=== PATIENT | male | born 1955 | race Caucasian/White ===

== ENCOUNTER 2017-05-23 16:37 | Emergency (ER) | payer BC, OTHER ==
[2017-05-23] MEDS ORDERED: TETANUS/DIPHTHERIA/PERTUSSIS 0.5 ML SYRINGE IM ONE (17:54)
[2017-05-23] MEDS ORDERED: AMOX/CLAV 875 MG/125 MG TABLET PO STA (17:54)
--- NOTE | 2017-05-23 17:57 | ED Physician Documentation ---
History of Present Illness - Stated complaint Stated Complaint: DOG BITE LT HAND - Chief complaint Chief Complaint: Laceration - Additonal information Additional information: hx from pt his dog bit him on the left hand today immunized dog pt need tdap provoked bite (dog didnt like feet being wiped) Review of Systems Skin: reports: Bite / sting PD PAST MEDICAL HISTORY - Past Medical History Past Medical History: Yes Derm: Psoriasis Other Past Medical History: Colon Cancer - Past Surgical History Past Surgical History: Yes - Present Medications Home Medications: Ambulatory Orders Medication Instructions Recorded Confirmed Ondansetron Odt [Zofran] 4 mg TL Q6H PRN #10 tablet 12/23/12 12/26/12 Amox/Clav 875/125 [Augmentin] 1 each PO Q12H #10 tablet 05/23/17 - Allergies Allergies/Adverse Reactions: Allergies Allergy/AdvReac Type Severity Reaction Status Date / Time No Known Drug Allergies Allergy Verified 12/23/12 17:26 - Social History Does the pt smoke?: Yes Smoking Status: Current every day smoker Does the pt drink ETOH?: Yes Does the pt have substance abuse?: No - Immunizations Immunizations are current?: No Immunizations: TDAP >10years/unknown PD ED PE NORMAL - Vitals Vital signs reviewed: Yes - Extremities Extremities: Other (L hand approx 1.5 cm U shaped lac over 3rd MCP jt, not too deep, examined to base through ROM and saw no FB or tendon, full flexion extion MCP PIP DIP, sensation intact) Results - Vitals Vitals: Vital Signs - 24 hr 05/23/17 16:43 Temperature 36.8 C Heart Rate 75 Respiratory 18 Rate Blood Pressure 158/98 H O2 Saturation 100 Oxygen O2 Source Room air PD MEDICAL DECISION MAKING - ED course ED course: explained why cannot suture will irrigate dress rx augmentin and give tdap Departure - Departure Disposition: 01 Home, Self Care Clinical Impression: Dog bite Qualifiers: Encounter type: initial encounter Qualified Code(s): W54.0XXA - Bitten by dog, initial encounter Condition: Good Instructions: ED Bite Animal General Prescriptions: Amox/Clav 875/125 [Augmentin] 1 each PO Q12H #10 tablet Comments: Keep the wound clean. Apply antibiotic ointment twice a day. Take the augmentin to prevent infection Even with good wound care and prophylactic antibiotics, some wound get infected - please watch the wound carefully and if it becomes red or swollen or painful or is draining pus, come back right away
[2017-05-23 18:47] VITALS: BP 158/85
== END 2017-05-23 18:45 | disposition home or self-care (01) ==
LOC: ED 16:37
DX: S61.412A Laceration without foreign body of left hand, initial encounter (principal); W54.0XXA Bitten by dog, initial encounter; Z23 Encounter for immunization; F17.200 Nicotine dependence, unspecified, uncomplicated
CPT/HCPCS: 90471; 90715; 99283; A9270

== ENCOUNTER 2022-02-24 12:40 | Outpatient (CLI) | payer OTHER ==
--- NOTE | 2022-02-24 17:24 | CT Report ---
PROCEDURE: Low Dose Lung Cancer Screen INDICATIONS: CIGARETTE SMOKER TECHNIQUE: Noncontrast low-dose axial images were acquired from the pulmonary apices to the posterior costophren ic angles. Multiplanar MIP reformats were then reconstructed. For radiation dose reduction, the follo wing was used: automated exposure control, adjustment of mA and/or kV according to patient size. COMPARISON: None. FINDINGS: Image quality: Excellent. Lungs and pleura: There is a small 3 mm pulmonary nodular density involving the patient's right midl winifred. No other significant pulmonary lesions are identified. No focal lung infiltrate is seen. Mild emphysematous changes noted throughout both lungs. No pleural effusion is seen. Mediastinum: Heart size is normal. No pericardial effusion. No mediastinal adenopathy by size crit eria. Thoracic aorta and central pulmonary arteries are normal in size. Esophagus is normal in maite piedad. No hiatal hernia. There are some coronary artery and atherosclerotic calcifications present. Bones and chest wall: No suspicious bony lesions. No vertebral body compression fractures. No axil katelyn or supraclavicular adenopathy by size criteria. The thyroid is normal in size and there are no incidental findings. Abdomen: Visualized upper abdomen solid organs and bowel loops appear normal in the absence of contr ast. IMPRESSION: 1. Single small 3 mm pulmonary nodular density right midlung. 2. Mild emphysematous changes are noted throughout both lungs. 3. Coronary artery and atherosclerotic calcifications. 4. Lung rads Category 2. Benign findings. Recommend low-dose CT of the chest in 12 months. Reviewed by: Jose Banda MD on 02/24/2022 5:23 PM PST Approved by: Jose Banda MD on 02/24/2022 5:23 PM PST Station ID: [id number]
== END 2022-02-24 12:41 | disposition home or self-care (01) ==
LOC: DI 12:40
PROVIDERS: ATTEND Nurse Practitioner
DX: Z12.2 Encounter for screening for malignant neoplasm of respiratory organs (principal); F17.210 Nicotine dependence, cigarettes, uncomplicated; R91.1 Solitary pulmonary nodule; J43.9 Emphysema, unspecified; I25.10 Atherosclerotic heart disease of native coronary artery without angina pectoris

== ENCOUNTER 2023-05-02 07:45 | Outpatient (CLI) | payer MEDICARE, OTHER ==
--- NOTE | 2023-05-02 11:22 | XRAY Report ---
PROCEDURE: Humerus RT INDICATIONS: PAIN IN RIGHT UPPER ARM TECHNIQUE: 2 views of the humerus were acquired. COMPARISON: None. FINDINGS: Bones: No fractures or dislocations. No suspicious bony lesions. Soft tissues: No suspicious soft tissue calcifications or masses. IMPRESSION: No visualized acute fracture or dislocation. However, occult injury cannot be excluded. Recommend chilo rt interval imaging follow-up in 7-10 days as clinically indicated for additional evaluation. Reviewed by: Amanda Mckee MD on 05/02/2023 11:21 AM [facility] Approved by: Amanda Mckee MD on 05/02/2023 11:21 AM PST Station ID: [id number]
== END 2023-05-02 08:00 | disposition home or self-care (01) ==
LOC: DI.N 07:45
PROVIDERS: ATTEND Nurse Practitioner
DX: M79.621 Pain in right upper arm (principal)

== ENCOUNTER 2023-06-12 12:00 | Outpatient (CLI) | payer OTHER | END 2023-06-12 12:15 | disposition home or self-care (01) | LOC: LAB.N 12:00 | PROVIDERS: ATTEND Physician Assistant Medical | DX: J02.9 Acute pharyngitis, unspecified (principal) | CPT/HCPCS: 87070 ==

== ENCOUNTER 2023-07-15 07:30 | Outpatient (CLI) | payer OTHER ==
[2023-07-15 07:46] LABS: BASOPHILS % (AUTO) 0.6 %; EOSINOPHILS # (AUTO) 0.2 10^3/uL (0.0-0.7); EOSINOPHILS % (AUTO) 3.7 %; HCT - HEMATOCRIT 40.4 % (42.0-52.0); HGB - HEMOGLOBIN 12.9 g/dL (14.0-18.0); LYMPHOCYTES # (AUTO) 1.7 10^3/uL (1.5-3.5); LYMPHOCYTES % (AUTO) 33.6 %; MEAN CORPUSCULAR HEMOGLOBIN 32.3 pg (27.0-31.0); MEAN CORPUSCULAR HGB CONC 31.9 g/dL (32.0-36.0); MEAN CORPUSCULAR VOLUME 101.3 fL (80.0-94.0); MEAN PLATELET VOLUME 8.2 fL (7.4-11.4); MONOCYTES # (AUTO) 0.6 10^3/uL (0.0-1.0); MONOCYTES % (AUTO) 11.4 %; NEUTROPHILS # (AUTO) 2.6 10^3/uL (1.5-6.6); NEUTROPHILS % (AUTO) 50.5 %; PLT - PLATELET COUNT 261 10^3/uL (130-450); RED BLOOD COUNT 3.99 10^6/uL (4.70-6.10); WHITE BLOOD COUNT 5.2 x10^3/uL (4.8-10.8)
[2023-07-15 08:00] LABS: ALBUMIN 4.1 g/dL (3.2-5.5); ALBUMIN/GLOBULIN RATIO 1.5 (1.0-2.2); ALKALINE PHOSPHATASE 59 IU/L (42-121); ALT ALANINE AMINOTRANSFERASE 14 IU/L (10-60); AST ASPARTATE AMINOTRANSFERASE 13 IU/L (10-42); BILIRUBIN,TOTAL 0.2 mg/dL (0.2-1.0); BUN - BLOOD UREA NITROGEN 12 mg/dL (6-20); CALCIUM 9.4 mg/dL (8.5-10.3); CARBON DIOXIDE - CO2 28 mmol/L (21-32); CHLORIDE 107 mmol/L (101-111); CHOL/HDL RATIO 4.1 (<5.0); CHOLESTEROL 223 mg/dL; CREATININE 0.7 mg/dL (0.6-1.3); GFR - MDRD 112 (>89); GLUCOSE 109 mg/dL (74-104); HDL CHOLESTEROL 54 mg/dL; LDL CHOLESTEROL,CALCULATED 155 mg/dL; LDL/HDL RATIO 2.9 (<3.6); POTASSIUM 4.4 mmol/L (3.5-4.5); SODIUM 141 mmol/L (135-145); TOTAL PROTEIN 6.8 g/dL (6.4-8.9); TRIGLYCERIDES 72 mg/dL (48-352); VLDL CHOLESTEROL 14 mg/dL
[2023-07-15 08:14] LABS: THYROID STIMULATING HORMONE 2.42 uIU/mL (0.34-5.60)
== END 2023-07-15 07:31 | disposition home or self-care (01) ==
LOC: LAB 07:30
PROVIDERS: ATTEND Nurse Practitioner Family
DX: R03.0 Elevated blood-pressure reading, without diagnosis of hypertension (principal); Z12.5 Encounter for screening for malignant neoplasm of prostate
CPT/HCPCS: 36415; 80053; 80061; 83721; 84153; 84443; 85025

== ENCOUNTER 2023-07-17 16:48 | Outpatient (CLI) | payer OTHER ==
--- NOTE | 2023-07-18 09:29 | Ultrasound Report ---
PROCEDURE: Soft Tissue Head or Neck INDICATIONS: THYROID MASS TECHNIQUE: Real-time scanning was performed of the thyroid gland, with image documentation. COMPARISON: None FINDINGS: Right: Thyroid lobe measures 4.4 x 1.6 x 1.9 cm, and is heterogeneous in echotexture. Left: Thyroid lobe measures 4 x 1.3 x 1.3 cm, and is heterogeneous in echotexture. Isthmus: 0.3 cm thick. No thyroid nodules. A few nonenlarged benign lymph nodes with normal morphology. IMPRESSION: Thyroid gland is heterogeneous in echotexture with no nodules. Reviewed by: Ruth Clinton MD on 07/18/2023 9:27 AM PDT Approved by: Ruth Clinton MD on 07/18/2023 9:27 AM PDT Station ID: [id number]
== END 2023-07-17 16:49 | disposition home or self-care (01) ==
LOC: DI 16:48
PROVIDERS: ATTEND Nurse Practitioner Family
DX: E07.9 Disorder of thyroid, unspecified (principal)

== ENCOUNTER 2023-07-31 15:40 | Outpatient (CLI) | payer OTHER ==
[2023-07-31 16:04] LABS: BASOPHILS % (AUTO) 0.7 %; EOSINOPHILS # (AUTO) 0.1 10^3/uL (0.0-0.7); EOSINOPHILS % (AUTO) 1.4 %; HCT - HEMATOCRIT 37.4 % (42.0-52.0); HGB - HEMOGLOBIN 12.2 g/dL (14.0-18.0); LYMPHOCYTES # (AUTO) 2.6 10^3/uL (1.5-3.5); LYMPHOCYTES % (AUTO) 46.8 %; MEAN CORPUSCULAR HEMOGLOBIN 32.4 pg (27.0-31.0); MEAN CORPUSCULAR HGB CONC 32.6 g/dL (32.0-36.0); MEAN CORPUSCULAR VOLUME 99.2 fL (80.0-94.0); MEAN PLATELET VOLUME 8.1 fL (7.4-11.4); MONOCYTES # (AUTO) 0.6 10^3/uL (0.0-1.0); MONOCYTES % (AUTO) 10.8 %; NEUTROPHILS # (AUTO) 2.2 10^3/uL (1.5-6.6); NEUTROPHILS % (AUTO) 40.3 %; PLT - PLATELET COUNT 213 10^3/uL (130-450); RED BLOOD COUNT 3.77 10^6/uL (4.70-6.10); RED CELL DISTRIBUTION WIDTH 12.8 % (12.0-15.0); WHITE BLOOD COUNT 5.5 x10^3/uL (4.8-10.8)
[2023-07-31 16:36] LABS: FERRITIN 41.4 ng/mL (23.9-336.2)
== END 2023-07-31 15:41 | disposition home or self-care (01) ==
LOC: LAB 15:40
PROVIDERS: ATTEND Nurse Practitioner Family
DX: D64.9 Anemia, unspecified (principal)
CPT/HCPCS: 36415; 82607; 82728; 82746; 83540; 84466; 85025

== ENCOUNTER 2023-11-03 09:27 | Outpatient (CLI) | payer OTHER ==
--- NOTE | 2023-11-03 11:57 | CT Report ---
PROCEDURE: Head WO INDICATIONS: SHORT TERM MEMORY LOSS TECHNIQUE: Noncontrast 4.5 mm thick angled axial sections acquired from the foramen magnum to the vertex. For r adiation dose reduction, the following was used: automated exposure control, adjustment of mA and/or kV according to patient size. COMPARISON: None. FINDINGS: Image quality: Excellent. CSF spaces: Basal cisterns are patent. No extra-axial fluid collections. Ventricles are normal in size and shape. Brain: No midline shift. No intracranial masses or hemorrhage. Carmichael-white matter interface is norm al. Age-appropriate brain parenchymal volume loss and chronic small vessel ischemic change can be se en. Skull and face: Calvarium and visualized facial bones are intact, without suspicious lesions. Sinuses: Visualized sinuses and mastoids are clear. IMPRESSION: Noncontrast head CT within normal limits for age. Reviewed by: Casey Saucedo MD on 11/03/2023 10:56 AM [facility] Approved by: Casey Saucedo MD on 11/03/2023 10:56 AM [facility] Station ID: [id number]
== END 2023-11-03 09:28 | disposition home or self-care (01) ==
LOC: DI 09:27
PROVIDERS: ATTEND Nurse Practitioner Family
DX: R41.3 Other amnesia (principal)

== ENCOUNTER 2023-11-13 15:58 | Emergency (ER) | payer OTHER ==
[2023-11-13 16:28] VITALS: O2SAT 99
[2023-11-13 16:49] LABS: BASOPHILS % (AUTO) 0.3 %; EOSINOPHILS # (AUTO) 0.1 10^3/uL (0.0-0.7); EOSINOPHILS % (AUTO) 1.3 %; HCT - HEMATOCRIT 38.8 % (42.0-52.0); LYMPHOCYTES % (AUTO) 23.2 %; MEAN CORPUSCULAR HEMOGLOBIN 32.6 pg (27.0-31.0); MEAN CORPUSCULAR HGB CONC 33.5 g/dL (32.0-36.0); MEAN CORPUSCULAR VOLUME 97.2 fL (80.0-94.0); MEAN PLATELET VOLUME 8.4 fL (7.4-11.4); MONOCYTES # (AUTO) 1.2 10^3/uL (0.0-1.0); MONOCYTES % (AUTO) 13.9 %; NEUTROPHILS # (AUTO) 5.2 10^3/uL (1.5-6.6); NEUTROPHILS % (AUTO) 61.1 %; PLT - PLATELET COUNT 204 10^3/uL (130-450); RED BLOOD COUNT 3.99 10^6/uL (4.70-6.10); RED CELL DISTRIBUTION WIDTH 12.2 % (12.0-15.0); WHITE BLOOD COUNT 8.6 x10^3/uL (4.8-10.8)
[2023-11-13 16:56] LABS: RAPID STREP SCREEN Negative (Negative)
[2023-11-13 17:19] LABS: ALBUMIN 4.4 g/dL (3.2-5.5); ALBUMIN/GLOBULIN RATIO 1.6 (1.0-2.2); BILIRUBIN,TOTAL 0.5 mg/dL (0.2-1.0); CALCIUM 9.6 mg/dL (8.5-10.3); CREATININE 0.7 mg/dL (0.6-1.3); POTASSIUM 4.1 mmol/L (3.5-4.5); TOTAL PROTEIN 7.2 g/dL (6.4-8.9)
--- NOTE | 2023-11-13 17:20 | ED Physician Documentation ---
History of Present Illness - Stated complaint Stated Complaint: SORE THROAT - Chief complaint Chief Complaint: Heent - History obtained from History obtained from: Patient - Additonal information Additional information: This is a very nice 68-year-old gentleman who Presents with a sore throat which started Last night. He notes more swelling on the left side and it is quite painful to swallow though he is able to tolerate oral fluids. He has not had any difficulty managing secretions, and denies any difficulty breathing. He has not had a fever to his knowledge, no difficulty opening the mouth or moving the neck. He has not attempted any medication for this. He states that sometime within the last year possibly 8 to 9 months ago he had another peritonsillar abscess which was treated with antibiotics. He has never seen ENT and has not had to have an abscess drained in the past. Review of Systems Constitutional: reports: Reviewed and negative Eyes: reports: Reviewed and negative Ears: reports: Reviewed and negative Nose: reports: Reviewed and negative Throat: reports: Sore throat Cardiac: reports: Reviewed and negative Respiratory: reports: Reviewed and negative GI: reports: Reviewed and negative : reports: Reviewed and negative Skin: reports: Reviewed and negative Musculoskeletal: reports: Reviewed and negative Neurologic: reports: Reviewed and negative PD PAST MEDICAL HISTORY - Past Medical History Past Medical History: Yes Derm: Psoriasis - Past Surgical History Past Surgical History: Yes - Present Medications Home Medications: Ambulatory Orders Medication Instructions Recorded Confirmed Ondansetron Odt [Zofran] 4 mg TL Q6H PRN #10 tablet 12/23/12 12/26/12 Amox/Clav 875/125 [Augmentin] 1 each PO Q12H #10 tablet 05/23/17 Amox/Clav 875/125 [Augmentin] 1 each PO Q12H #20 tablet 11/13/23 HYDROcod/ACETAM 5/325 [[place] 5/325] 1 - 2 tablet PO Q6H PRN #14 tablet 11/13/23 predniSONE [Deltasone] 10 mg PO [id number] #42 tab 11/13/23 - Allergies Allergies/Adverse Reactions: Allergies Allergy/AdvReac Type Severity Reaction Status Date / Time No Known Drug Allergies Allergy Verified 11/13/23 16:19 - Social History Does the pt smoke?: Yes Smoking Status: Current every day smoker Does the pt drink ETOH?: Yes Does the pt have substance abuse?: No - Immunizations Immunizations are current?: No Immunizations: TDAP >10years/unknown - POLST Patient has POLST: No PD ED PE NORMAL - Vitals Vital signs reviewed: Yes - General General: Alert and oriented X 3, No acute distress, Well developed/nourished - HEENT HEENT: Atraumatic, Ears normal, Moist mucous membranes, Other (erythematous posterior pharynx with left sided swelling. uvula midline. no trismus. ) - Cardiac Cardiac: RRR, No murmur - Respiratory Respiratory: No respiratory distress, Clear bilaterally - Abdomen Abdomen: Normal bowel sounds, Soft, Non tender, Non distended - Derm Derm: Normal color, Warm and dry, No rash - Extremities Extremities: No deformity, No tenderness to palpate, Normal ROM s pain, No edema, No calf tenderness / cord - Neuro Neuro: Alert and oriented X 3 Eye Opening: Spontaneous Motor: Obeys Commands Verbal: Oriented GCS Score: 15 - Psych Psych: Normal mood, Normal affect Results - Vitals Vitals: Vital Signs - 24 hr 11/13/23 11/13/23 11/13/23 16:16 18:19 19:16 Temperature 36.8 C Heart Rate 81 80 Respiratory 20 16 97 H Rate Blood Pressure 177/85 H 155/85 H 157/82 H O2 Saturation 99 99 Oxygen O2 Source Room air - Labs Labs: Laboratory Tests 11/13/23 11/13/23 11/13/23 16:05 16:44 16:44 WBC 8.6 RBC 3.99 L Hgb 13.0 L Hct 38.8 L MCV 97.2 H MCH 32.6 H MCHC 33.5 RDW 12.2 Plt Count 204 MPV 8.4 Neut # (Auto) 5.2 Lymph # (Auto) 2.0 [place] # (Auto) 1.2 H Eos # (Auto) 0.1 Baso # (Auto) 0.0 Absolute Nucleated RBC 0.00 Nucleated RBC % 0.0 Sodium 139 Potassium 4.1 Chloride 104 Carbon Dioxide 29 Anion Gap 6.0 BUN 9 Creatinine 0.7 Estimated GFR (MDRD) 112 Glucose 97 Calcium 9.6 Total Bilirubin 0.5 AST 13 ALT 12 Alkaline Phosphatase 70 Total Protein 7.2 Albumin 4.4 Globulin 2.8 Albumin/Globulin Ratio 1.6 Lipase 18 Group A Strep Rapid Negative - Rads (name of study) No standard instances Relevant Findings:: Final report received PD Medical Decision Making - ED course Complexity details: reviewed results, re-evaluated patient, considered differential, d/w patient ED course: 68-year-old male presented with left sided sore throat as described in HPI. On exam, patient has an erythematous posterior pharynx with swelling more prominent on the left posterior pharynx, uvula remains midline. She does not have any trismus, able to manage secretions, and airway intact. There is concern for possible peritonsillar abscess therefore an IV was established and labs were obtained which are reassuring. The patient was given 10 of IV Decadron, 15 mg of IV Toradol and a dose of Unasyn. He had substantial improvement in his symptoms, feeling like he can swallow much better at this time, and continues to maintain his airway and manage secretions well. CT does show a left peritonsillar abscess 1 x 2.6 cm, however I do think patient is stable for discharge home with antibiotics and steroids and outpatient follow-up with ENT. No indication for emergent drainage or transfer for ENT at this time. Patient will be discharged with prednisone as well as Augmentin and he continue ibuprofen or Tylenol for pain. He was advised of strict return precautions if he had increased swelling, difficulty opening his mouth, turning his head [id number], managing secretions or other new concerns. Departure - Departure Disposition: 01 Home, Self Care Clinical Impression: Peritonsillar abscess Condition: Good Instructions: ED Peritonsillar Abscess Follow-Up: [facility] [Provider Group] Prescriptions: Amox/Clav 875/125 [Augmentin] 1 each PO Q12H #20 tablet predniSONE [Deltasone] 10 mg PO [id number] #42 tab HYDROcod/ACETAM 5/325 [[place] 5/325] 1 - 2 tablet PO Q6H PRN #14 tablet PRN Reason: Pain Comments: You do have an abscess around your left tonsil. It is small enough at this time that we can try antibiotics and steroids at home. If your symptoms worsen however if you have increased difficulty swallowing, increased swelling, are not able to open your mouth, or are not able to swallow your secretions or otherwise feel worse, please return to the ER. Otherwise recommend you follow-up outpatient with brush clearer surveying. Please follow up as needed at [facility] in [place]: [phone] I am prescribing a short course of narcotic pain medication for you. These are potentially dangerous and addictive medications that should be used carefully. These medications may constipate you. Take an rxhn-ben-iomtkgq stool softener (docusate) twice daily with plenty of water while taking these medications. If you go 24 hours without a bowel movement, take idlw-kji-sthvcaw miralax, per package instructions. Do not drink or drive while taking these medications. If you received narcotic or sedating medications while in the emergency department, do not drive for 24 hours. Store this medication in a safe, secure place and out of reach of children. It is a violation of federal law to give or sell this medication to another person or to use in a manner other than prescribed. The ED will not refill narcotic prescriptions, including prescriptions lost or stolen. To dispose of unwanted medications: 1. [facility] provides a drop box for medication in pill form only (no liquids) 8:00 am to 4:30 p.m. Monday-Monday in the lobby of the [facility], [address] [place] [address]. Empty pills into ziplock bag before disposal. Call [phone] for information. 2.[employer] is a free service available to all [facility] residents. Go to [email or web address] Note that many narcotic pain relievers also contain Tylenol/acetaminophen. Please ensure that your total dose of acetaminophen from all sources does not exceed 3 g (3000 mg) per day. Forms: PCP List Discharge Date/Time: 11/13/23 19:25
[2023-11-13] MEDS ORDERED: iohexoL-300 100 ML VIAL ONE (17:21)
[2023-11-13] MEDS: DEXAMETHASONE 10 MG/ML VIAL IVP STA (18:02)
[2023-11-13] MEDS: KETOROLAC 15 MG/ML VIAL IVP STA (18:03)
[2023-11-13] MEDS: AMPICILLIN/SULBACTAM 3 GM in SODIUM CHLORIDE 0.9% MINIBAG 100 ML IV STA (18:04)
[2023-11-13] MEDS: iohexoL-300 100 ML VIAL IVP ONE (18:45)
--- NOTE | 2023-11-13 18:58 | CT Report ---
PROCEDURE: Soft Tissue Neck W INDICATIONS: left peritonsilar abscess CONTRAST: 100ML [id number] TECHNIQUE: After the administration of intravenous contrast, 3.0 mm axial sections acquired from the sella to th e aortic arch. Additional oblique axial 3.0 mm sections acquired through the pharynx. 3 mm thick co jun reformats were generated. For radiation dose reduction, the following was used: automated exp osure control, adjustment of mA and/or kV according to patient size. COMPARISON: None. FINDINGS: Image quality: Excellent. Lymph nodes: Borderline enlarged left sided lymph nodes. Vessels: Visualized vasculature appears patent. Neck spaces: There is enhancing low-attenuation mass measuring 1.0 x 2.6 cm in the left tonsillar reg ion. Mild narrowing of the airway.. The vocal cords, false vocal cords, pyriform sinuses, epiglottis , vallecula, and tongue base all appear normal. Extramucosal spaces appear unremarkable. Glands: The parotid and submandibular glands appear normal. The thyroid is normal in size and there are no incidental findings. Miscellaneous: Visualized brain and orbits appear normal. Lung apices appear clear. Superficial so ft tissues appear normal. Bones: No suspicious bony lesions. Visualized sinuses and mastoids appear unremarkable. IMPRESSION: Left peritonsillar abscess with borderline enlarged left-sided lymph nodes, likely reactive. Recommen d interval follow-up to document resolution and exclude presence of underlying necrotic mass. CLINICAL RECOMMENDATION STATEMENTS: In patients <35 years with an ITN detected on CT, MRI, or extrathyroidal ultrasound, the Committee re commends further evaluation with dedicated thyroid ultrasound if the nodule is "e1 cm and has no susp icious imaging features, and if the patient has normal life expectancy. In patients "e35 years with an ITN detected on CT, MRI, or extrathyroidal ultrasound, the Committee r ecommends further evaluation with dedicated thyroid ultrasound if the nodule is "e1.5 cm and has no s uspicious imaging features, and if the patient has normal life expectancy. (ACR, 2014) Reviewed by: Amanda Mckee MD on 11/13/2023 6:57 PM PDT Approved by: Amanda Mckee MD on 11/13/2023 6:57 PM PDT Station ID: [id number]
[2023-11-13 19:31] VITALS: BP 157/82
== END 2023-11-13 19:25 | disposition home or self-care (01) ==
LOC: ED 15:58
DX: J36 Peritonsillar abscess (principal); F17.200 Nicotine dependence, unspecified, uncomplicated
CPT/HCPCS: 36415; 70491; 80053; 83690; 85025; 87070; 87430; 96365; 96375; 99284; Q9967

== ENCOUNTER 2024-01-02 10:30 | Outpatient (CLI) | payer OTHER ==
[2024-01-02 10:45] LABS: CREATININE 0.7 mg/dL (0.6-1.3)
[2024-01-02] MEDS: iohexoL-300 100 ML VIAL IVP ONE (11:30)
--- NOTE | 2024-01-02 16:10 | CT Report ---
PROCEDURE: Soft Tissue Neck W INDICATIONS: PERITONSILLAR ABSCESS CONTRAST: iohex 300 100ml TECHNIQUE: After the administration of intravenous contrast, 3.0 mm axial sections acquired from the sella to th e aortic arch. Additional oblique axial 3.0 mm sections acquired through the pharynx. 3 mm thick co jun reformats were generated. For radiation dose reduction, the following was used: automated exp osure control, adjustment of mA and/or kV according to patient size. COMPARISON: CT neck 11/13/2023 FINDINGS: Image quality: Excellent. Lymph nodes: No enlarged lymph nodes seen throughout the neck. Vessels: Visualized vasculature appears patent. Neck spaces: The oropharynx, nasopharynx, and pharynx demonstrate no mucosal lesions. The vocal cor ds, false vocal cords, pyriform sinuses, epiglottis, vallecula, and tongue base all appear normal. E xtramucosal spaces appear unremarkable. Previous appearance of left tonsillar fullness with heteroge neous enhancement demonstrates near complete interval resolution. No midline shift of trachea. Glands: The parotid and submandibular glands appear normal. The thyroid is normal in size and there are no incidental findings. Miscellaneous: Visualized brain and orbits appear normal. Lung apices appear clear. Superficial so ft tissues appear normal. Bones: No suspicious bony lesions. Visualized sinuses and mastoids appear unremarkable. IMPRESSION: Near complete interval resolution of previous left tonsillar abnormality. CLINICAL RECOMMENDATION STATEMENTS: In patients <35 years with an ITN detected on CT, MRI, or extrathyroidal ultrasound, the Committee re commends further evaluation with dedicated thyroid ultrasound if the nodule is "e1 cm and has no susp icious imaging features, and if the patient has normal life expectancy. In patients "e35 years with an ITN detected on CT, MRI, or extrathyroidal ultrasound, the Committee r ecommends further evaluation with dedicated thyroid ultrasound if the nodule is "e1.5 cm and has no s uspicious imaging features, and if the patient has normal life expectancy. (ACR, 2014) Reviewed by: Amanda Mckee MD on 01/02/2024 4:09 PM PDT Approved by: Amanda Mkcee MD on 01/02/2024 4:09 PM PDT Station ID: [id number]
== END 2024-01-02 10:31 | disposition home or self-care (01) ==
LOC: LAB 10:30
PROVIDERS: ATTEND Nurse Practitioner Family
DX: J36 Peritonsillar abscess (principal)
CPT/HCPCS: 36415; 82565